=== PATIENT | female | born 1930 | race Caucasian/White ===

== ENCOUNTER 2017-06-28 09:45 | Outpatient (CLI) | payer MEDICARE, BC ==
[2017-06-28 10:45] LABS: #Basophils 0.1 thou/uL (0.0-0.2); #Eosinphils 0.3 thou/uL (0.0-0.7); #Lymphocytes 2.1 thou/uL (1.20-3.40); #Monocytes 0.5 thou/uL (0.11-0.59); #Neutrophils 6.5 thou/uL (1.40-6.50); %Basophils 0.7 % (0.0-1.0); %Eosinophils 3.4 % (0.0-10.0); %Monocytes 5.5 % (0.0-10.0); Hematocrit 46.9 % (36.0-47.0); Mean Platelet Volume 7.2 fL (7.4-10.4); Red Blood Cell (RBC) Count 5.11 mill/uL (4.20-5.40); White Blood Cell (WBC) Count 9.5 thou/uL (4.8-10.8)
[2017-06-28 10:46] LABS: Bilirubin Negative (Negative); Blood, Urine Negative (Negative); Glucose, Urine (Dipstick) Negative (Negative); Ketone, Urine Negative (Negative); Nitrite Negative (Negative); Protein, Urine (Dipstick) Negative (Neg-Trace); Urobilinogen 0.2 mg/dL (0.2-1.0)
[2017-06-28 10:49] LABS: Bacteria/HPF None Seen HPF (None Seen); Hyaline Casts/LPF 0-3 HYALINE CAST LPF (0-3 Hyaline); RBC/HPF 0-3 HPF (0-3); Squamous Epithelial 0-3 HPF (0-3); WBC/HPF 0-3 HPF (0-3)
[2017-06-28 11:10] LABS: Anion Gap 12 mmol/L (10-20); BUN (Urea Nitrogen) 13 mg/dL (9.8-20.1); Calc. Creatinine Clearance 0 mL/min (70-130); Calcium 9.5 mg/dL (7.8-10.44); Carbon Dioxide 27 mmol/L (23-31); Chloride 105 mmol/L (98-107); Estimated GFR-MDRD 70
--- NOTE | 2017-06-28 13:27 | EKG ---
Test Reason : Blood Pressure : / mmHG Vent. Rate : 064 BPM Atrial Rate : 064 BPM P-R Int : 114 ms QRS Dur : 080 ms QT Int : 426 ms P-R-T Axes : 032 070 057 degrees QTc Int : 439 ms Normal sinus rhythm Anterior infarct , age undetermined Abnormal ECG No previous ECGs available Confirmed by DR. Snehal FERREIRA ([id number]) on 06/28/2017 1:26:52 PM Referred By: ABHISHEK Confirmed By:DR. Snehal FERREIRA
== END 2017-06-28 09:46 | disposition home or self-care (01) ==
LOC: LABBT 09:45
PROVIDERS: ATTEND Orthopaedic Surgery Hand Surgery
DX: Z01.818 Encounter for other preprocedural examination (principal); G56.01 Carpal tunnel syndrome, right upper limb
CPT/HCPCS: 80048; 81001; 85025; 93005; 93010

== ENCOUNTER 2017-06-30 07:30 | Day surgery (SDC) | payer MEDICARE, BC ==
[2017-06-28 10:03] VITALS: BMI 21.7
[2017-06-30] MEDS ORDERED: Albuterol Sulfate 2.5 mg/3 ml Neb ONE (09:09)
[2017-06-30] MEDS ORDERED: Albuterol Sulfate 2.5 mg/3 ml Neb NEB SCH (09:15)
[2017-06-30] MEDS ORDERED: Fentanyl 100 MCG/2 ML VIAL ONE (09:38)
[2017-06-30] MEDS ORDERED: CEFAZOLIN/Water 2 GM/20 ML SYRINGE ONE (09:44)
[2017-06-30] MEDS ORDERED: ePHEDrine/0.9% NaCl/PF SYRINGE 50 mg/10 ml ONE (10:00)
[2017-06-30] MEDS ORDERED: PHENYLEPHRINE-NS 100 MCG/ML 10 ML SYRINGE ONE (10:00)
[2017-06-30] MEDS ORDERED: Glycopyrrolate 0.2 MG/ML 5 ML SYRINGE ONE (10:00)
[2017-06-30] MEDS ORDERED: Lidocaine 1% PF 5 ML VIAL ONE (10:00)
[2017-06-30] MEDS ORDERED: Propofol 200 MG/20 ML VIAL ONE ×2 (10:00)
[2017-06-30] MEDS ORDERED: Betamet Acet/Betamet Na Ph 30 MG/5 ML VIAL ONE (10:25)
[2017-06-30] MEDS ORDERED: Ketorolac Tromethamine 30 MG/ML VIAL ONE (10:44)
--- NOTE | 2017-06-30 22:02 | OP ---
DATE OF PROCEDURE: 06/30/2017 PREOPERATIVE DIAGNOSIS: Right carpal tunnel syndrome. POSTOPERATIVE DIAGNOSIS: Right carpal tunnel syndrome. t FINDINGS: 1. Tight transverse carpal ligament in the central proximal one-third with some early flattening, b ut no true hourglass formation. 2. No marked tenosynovitis seen. 3. Type 1 takeoff motor branch. PROCEDURE PERFORMED: 1. Carpal tunnel release, right median nerve neuroplasty of right wrist. 2. Application, intraoperative steroids. COMPLICATIONS: None. TOURNIQUET TIME: 14 minutes at 250 mmHg pressure. ANESTHESIA: [place] Anesthesia, general LMA technique augmented by 8 mL 0.5% Marcaine block incisi on. She has failed conservative treatment and has had the problem documented in the evaluation as w ell as elective diagnostically. DESCRIPTION OF PROCEDURE: After successful anesthesia listed above, the limb was prepped and draped . The patient had timeout done appropriately. The limb was exsanguinated, tourniquet inflated to 2 50 mmHg pressure. We then gave the 8 mL Marcaine block along the incision outlined beginning in charmaine e with the ring finger, central area from medial, lateral, and as far distal as 4 proximal and 6 mm distal to volar wrist flexion crease. We then carried this incision to skin and subcutaneous tissue, staying just slightly ulnar to the li ne of the palmaris longus until we reached the transverse carpal ligament. Blunt dissection exposed , a Weitlaner retractor was placed and then we began to the transcarpal ligament from the mid portion distally visualizing and avoiding the distal neurovascular bundle that included the division of the nerves. Here we saw the motor branch and it was intact without separate constriction. We then under direct visualization, released the transcarpal ligament from the mid portion proximall y. Then, this was 100% released all the way to the volar flexion, the volar wrist fascia as well. The tendons were inspected, there was no excessive tenosynovitis, we then visualized the nerve and f ound the flattening as described above. Tourniquet released, hemostasis obtained. Two mL of Celestone drip along the nerve and then wound w as closed with interrupted 4-0 nylon in a mattress pattern. Bulky dressing was applied. The patien t left operating room without anesthetic or operative complication.
== END 2017-06-30 12:18 | disposition home or self-care (01) ==
LOC: SDC 07:30
PROVIDERS: ATTEND Anesthesiology
PROC: 01N50ZZ Release Median Nerve, Open Approach (ICD-10-PCS; principal; 2017-06-30)
DX: G56.01 Carpal tunnel syndrome, right upper limb (principal); E78.5 Hyperlipidemia, unspecified; I11.0 Hypertensive heart disease with heart failure; I50.9 Heart failure, unspecified; E03.9 Hypothyroidism, unspecified; J44.9 Chronic obstructive pulmonary disease, unspecified; Z87.891 Personal history of nicotine dependence
CPT/HCPCS: 96374; J0131; J0702; J1885; J2001; J2704; J3010; J7611

== ENCOUNTER 2018-09-19 21:00 | Inpatient (IN) | payer MEDICARE, BC ==
[2018-09-19 21:49] LABS: #Basophils 0.1 thou/uL (0.0-0.2); #Eosinphils 0.3 thou/uL (0.0-0.7); #Lymphocytes 1.8 thou/uL (1.20-3.40); #Monocytes 0.6 thou/uL (0.11-0.59); #Neutrophils 7.4 thou/uL (1.40-6.50); %Basophils 0.7 % (0.0-1.0); %Eosinophils 3.2 % (0.0-10.0); %Lymphocytes 17.3 % (21.0-51.0); %Monocytes 6.1 % (0.0-10.0); %Neutrophils 72.7 % (42.0-75.0); Hemoglobin 13.7 g/dL (12.0-16.0); Mean Corpuscular HGB CONC 33.2 g/dL (32.0-36.0); Mean Corpuscular Hemoglobin 28.6 pg (27.0-31.0); Mean Corpuscular Volume 86.2 fL (78.0-98.0); Mean Platelet Volume 7.4 fL (7.4-10.4); Platelet Count 272 thou/uL (130-400); RBC Distribution Width 12.3 % (11.5-14.5); Red Blood Cell (RBC) Count 4.78 mill/uL (4.20-5.40); White Blood Cell (WBC) Count 10.2 thou/uL (4.8-10.8)
--- NOTE | 2018-09-19 21:59 | RAD ---
RADIOGRAPH CHEST 1 VIEW: Date: 09/19/18 Time: 9:26 p.m. HISTORY: 88-year-old female with dyspnea and hypoxemia. COMPARISON: 08/07/18 FINDINGS: Again noted is the hyperinflation consistent with COPD. The cardiomediastinal silhouette is normal. T here are diffusely prominent interstitial markings. These appear more prominent now than on the prior study, but that could be due to technical differences. No consolidation or pneumothorax. Lateral cos tophrenic angles are not effaced. IMPRESSION: 1. Emphysema. 2. Prominent interstitial markings, chronic versus acute. Favor chronic. MAL [] POS: YADIRA
[2018-09-19] MEDS ORDERED: Magnesium 2 GM/50 ML BAG (IN WATER) ONE (22:48)
[2018-09-19] MEDS ORDERED: methylPREDNISolone Sod Succ/PF 125 MG/2 ML VIAL ONE (22:48)
[2018-09-20 02:52] VITALS: BMI 21.4
[2018-09-20] MEDS ORDERED: Acetaminophen 325 MG TAB PO PRN (08:48)
[2018-09-20] MEDS: Atenolol 25 MG TAB PO SCH (10:04)
[2018-09-20] MEDS: Amlodipine 10 MG TAB PO SCH (10:04)
[2018-09-20] MEDS: Enoxaparin Sodium 40 MG/0.4 ML SYRINGE SC SCH (10:04)
[2018-09-20] MEDS: Lisinopril 10 MG TAB PO SCH (10:05)
[2018-09-20] MEDS: Famotidine 20 MG TAB PO SCH ×2 (10:05→20:24)
[2018-09-20] MEDS: Aspirin 81 mg Enteric Coated Tablet PO SCH (10:05)
--- NOTE | 2018-09-20 11:06 | CT ---
NONCONTRAST ENHANCED CT CHEST: HISTORY: Shortness of breath. Lump removed from breast which was benign. FINDINGS: Noncontrast-enhanced CT of the chest demonstrates some mild increased interstitial markings seen in t he lung bases compatible with interstitial fibrotic changes. Minimal areas of patchy density are also seen in the lingula and right middle lobe. Marked atherosclerotic calcifications are seen in the abdominal aorta and coronary arteries. No significant evidence of mediastinal or axillary lymphadenopathy is seen. Surgical clips are seen in the gallbladder fossa. Calcifications are seen in the hepatic parenchyma. IMPRESSION: 1. Some lung parenchymal interstitial fibrotic change is noted. No significant evidence of pneumoni a seen. No significant evidence of lymphadenopathy seen. 2. Extensive coronary and aortic calcifications. POS: H
--- NOTE | 2018-09-20 11:37 | CON ---
DATE OF CONSULTATION: HISTORY OF PRESENT ILLNESS: This is an 88-year-old female with known history of COPD, smoked two packs a day for most of her life, 52, quit smoking about two years ago. She presented to the hospital with increasing shortness of breath and cough, unresponsive to usual medication, which includes DuoNeb, budesonide, albuterol inhaler. She has a previous history of pneumonia in 2016. At most, she can barely walk 20 feet without getting markedly dyspneic. PAST MEDICAL HISTORY: Otherwise pertinent for COPD, coronary artery disease, and hypertension. PREVIOUS SURGERIES: Have included cholecystectomy, a single stent in 2000. HOME MEDICATIONS: Include, 1. Synthroid 100. 2. Atenolol 25. 3. Aspirin once. 4. Caduet one. 5. Lisinopril 10. ALLERGIES: NONE. SOCIAL HISTORY: Unremarkable. Alcohol, none. Tobacco, none FAMILY HISTORY: Unremarkable. REVIEW OF SYSTEMS: Otherwise 10 point negative. PHYSICAL EXAMINATION: VITAL SIGNS: Saturations are 97% on 2 L, respiratory rate 16, temperature 97, and blood pressure 143/73. CHEST: Decreased breath sounds. Minimal rhonchi. Minimal wheezing. CARDIAC: Normal S1 and S2. No gallop. ABDOMEN: No masses. LABORATORY DATA AND DIAGNOSTIC STUDIES: White count 10,000. Chest x-ray shows no acute infiltrates, hyperinflation. CAT scan, chest shows no PE, bibasilar nonspecific scarring. IMPRESSION: 1. Chronic obstructive pulmonary disease exacerbation, bronchitis, possibly superimposed pneumonia. 2. Coronary artery disease. PLAN: Continue neb treatments, steroids have added, Dulera prior to discharge, consider whole PFT. Consultation note, 70 minutes, 50% direct patient care. Job ID: [id number]
--- NOTE | 2018-09-20 16:08 | HP ---
CHIEF COMPLAINT: Dyspnea on exertion. HISTORY OF PRESENT ILLNESS: This patient is 88-year-old female, who has a long history of smoking. The patient reported that she was actually admitted in 2016 at [facility] for pneumonia. She reports that since her discharge, she was sent home on oxygen therapy. However, in 2017, she stated she felt fine and returned the oxygen and has not used it routinely since. She follows with Dr. Jordan and reports that she has been having intermittent shortness of breath on exertion for a good while. Dr. Jordan referred her to Dr. Zazueta to ensure this was not heart related situation. She reports she had a negative stress test and echocardiogram. He has been treating her with Combivent and budesonide, but her symptoms have persisted and so he has referred her to Pulmonology, but she was not able to get an appointment before October. She presented to the emergency department with increasing dyspnea on exertion, progressive over the last couple of weeks. She does report that she has a cough, but the cough is nonproductive. She denies any chest pains, palpitations, or fevers or chills. REVIEW OF SYSTEMS: All other systems reviewed, all pertinent positives and negatives noted in the history of present illness. PAST MEDICAL HISTORY: Notable for hypertension, coronary artery disease, and hyperlipidemia. She states she has never been diagnosed with chronic obstructive pulmonary disease. PAST SURGICAL HISTORY: Benign right breast mass removal and cholecystectomy. FAMILY HISTORY: Father of heart disease. Mother of heart disease, also had Alzheimer disease. SOCIAL HISTORY: The patient smoked half pack to a pack a day and quit in 2016 when she had pneumonia. She has no history of alcohol use. She is . Her daughter, Siobhan Crum would be her surrogate decision maker and she is a do not intubate, but is amenable to cardiac resuscitation. ALLERGIES: NONE. MEDICATIONS: 1. Levothyroxine 100 mcg daily. 2. Atenolol 25 daily. 3. Aspirin 81 mg daily. 4. Caduet 10/80 every evening. 5. Lisinopril 10 mg daily. PHYSICAL EXAMINATION: GENERAL APPEARANCE: Age-appropriate female. She is in some mild respiratory distress. She has been up around her room and did recover by the end of our exam as she had sat back down on the bed for a while. HEENT: PERRL. No open lesions. NECK: Supple and symmetric. HEART: Regular rate and rhythm without murmurs, gallops, or rubs. LUNGS: Have some modestly coarse of breath sounds throughout, but actually has fair air exchange. No wheezes or rales are noted. Her abdomen is soft, nontender, and nondistended. Positive bowel sounds. No masses. No organomegaly. EXTREMITIES: Warm and dry. No cyanosis, clubbing or edema. NEUROLOGICALLY: The patient is intact. She is alert and oriented x3. She moves all extremities spontaneously. SKIN: Exam reveals good turgor with no lesions. LABORATORY DATA: White count 10.2, hemoglobin 13.7, platelets 272. CK 79, troponin less than 0.01. BNP 132. Chest x-ray shows no infiltrate, but some diffuse interstitial markings which appear to be more likely chronic. IMPRESSION AND PLAN: 1. Likely chronic obstructive pulmonary disease exacerbation. The patient is admitted. She was started on steroids, nebulizer treatments, and supplemental oxygen. The patient had magnesium and Levaquin in the emergency room as well. We will continue with Levaquin. We will consult Pulmonary given this is the patient's first admission what looks like a chronic obstructive pulmonary disease and she was referred by her PCP to have follow up with Pulmonology prior to this admission. We will also obtain a CT scan of the chest given her increased interstitial markings. Certainly possible. The patient may have some significant bronchiectasis as well. 2. Hypertension. Continue with her usual amlodipine and atenolol. 3. Hyperlipidemia. Continue with atorvastatin. 4. Hypothyroidism. Continue with the Synthroid. Job ID: [id number]
[2018-09-20] MEDS: Mometasone/Formoterol 120 PUFF INHALER INH SCH (19:06)
[2018-09-20] MEDS: Atorvastatin Calcium 40 MG TAB PO SCH (20:24)
[2018-09-21] MEDS: Levothyroxine Sodium 100 MCG TAB PO SCH (05:13)
[2018-09-21] MEDS: Mometasone/Formoterol 120 PUFF INHALER INH SCH ×2 (06:23→18:55)
[2018-09-21 07:33] LABS: #Basophils 0.1 thou/uL (0.0-0.2); #Lymphocytes 1.1 thou/uL (1.20-3.40); #Monocytes 0.2 thou/uL (0.11-0.59); #Neutrophils 8.9 thou/uL (1.40-6.50); %Basophils 0.8 % (0.0-1.0); %Eosinophils 0.2 % (0.0-10.0); %Lymphocytes 10.3 % (21.0-51.0); %Monocytes 2.3 % (0.0-10.0); %Neutrophils 86.4 % (42.0-75.0); Hemoglobin 11.7 g/dL (12.0-16.0); Mean Corpuscular Hemoglobin 28.4 pg (27.0-31.0); Mean Corpuscular Volume 88.5 fL (78.0-98.0); Mean Platelet Volume 7.4 fL (7.4-10.4); Platelet Count 233 thou/uL (130-400); RBC Distribution Width 11.9 % (11.5-14.5); Red Blood Cell (RBC) Count 4.13 mill/uL (4.20-5.40); White Blood Cell (WBC) Count 10.3 thou/uL (4.8-10.8)
[2018-09-21 07:52] LABS: Anion Gap 12 mmol/L (10-20); BUN (Urea Nitrogen) 13 mg/dL (9.8-20.1); Calc. Creatinine Clearance 55 mL/min (70-130); Calcium 8.6 mg/dL (7.8-10.44); Carbon Dioxide 22 mmol/L (23-31); Chloride 104 mmol/L (98-107); Estimated GFR-MDRD 88; Glucose 155 mg/dL (83-110); Potassium 3.9 mmol/L (3.5-5.1); Sodium 134 mmol/L (136-145)
[2018-09-21] MEDS: Lisinopril 10 MG TAB PO SCH (09:11)
[2018-09-21] MEDS: Atenolol 25 MG TAB PO SCH (09:11)
[2018-09-21] MEDS: Amlodipine 10 MG TAB PO SCH (09:11)
[2018-09-21] MEDS: Enoxaparin Sodium 40 MG/0.4 ML SYRINGE SC SCH (09:12)
[2018-09-21] MEDS: Aspirin 81 mg Enteric Coated Tablet PO SCH (09:12)
[2018-09-21] MEDS: Famotidine 20 MG TAB PO SCH ×2 (09:12→20:06)
[2018-09-21] MEDS: predniSONE 20 MG TAB PO SCH ×2 (09:16→20:07)
--- NOTE | 2018-09-21 09:22 | PRG ---
DATE OF SERVICE: 09/21/2018 SUBJECTIVE: This morning, she is better. She is less short of breath, less coughing, less wheezing. OBJECTIVE: VITAL SIGNS: Saturations are 95 on 2L, respiratory rate 20, temperature 97, blood pressure 152/70. CHEST: Decreased breath sounds. No wheezing. CARDIAC: Normal S1, S2. No gallops. ABDOMEN: No masses. LABORATORY DATA: Lytes are normal. IMPRESSION: 1. Chronic obstructive pulmonary disease exacerbation. 2. Bronchitis. 3. Former smoker. PLAN: Switch her over to oral antibiotics and oral steroids. DISPOSITION: Hopefully home in the next 24-48 hours. Job ID: [id number]
--- NOTE | 2018-09-21 12:24 | PDOC.PN ---
- Subjective Encounter Start Date: 09/21/18 Encounter Start Time: 11:15 Breathing is better, but still feels a little SOB at times. Thinks she would benefit from home oxygen. - Objective Resuscitation Status - Order Detail: 09/20/18 08:48 Resuscitation Status Routine Resuscitation Status: PRTL: Cardiac only Discussed with: Patient Vital Signs & Weight: Vital Signs (12 hours) Temp Pulse Resp BP Pulse Ox 09/21/18 11:23 97.3 F L 81 20 125/70 97 09/21/18 10:11 87 16 93 L 09/21/18 07:41 97.3 F L 87 22 H 152/70 H 95 09/21/18 06:23 80 18 96 09/21/18 06:21 80 18 96 09/21/18 04:00 97.8 F 80 20 126/62 96 09/21/18 02:14 85 16 95 Weight Weight 121 lb 6.4 oz I&O: 09/20/18 09/21/18 09/22/18 06:59 06:59 06:59 Intake Total 480 1870 Balance 480 1870 Result Diagrams: 09/21/18 07:07 09/21/18 07:07 Phys Exam - Physical Examination Constitutional: NAD Respiratory: no wheezing, no rales, no rhonchi Diminished throughout. Cardiovascular: RRR, no significant murmur, no rub Gastrointestinal: soft, non-tender, no distention, positive bowel sounds Musculoskeletal: no edema Neurological: non-focal Psychiatric: normal affect, A&O x 3 Dx/Plan (1) COPD exacerbation Code(s): J44.1 - CHRONIC OBSTRUCTIVE PULMONARY DISEASE W (ACUTE) EXACERBATION Status: Acute (2) Hypertension Code(s): I10 - ESSENTIAL (PRIMARY) HYPERTENSION Status: Acute (3) Hyperlipidemia Code(s): E78.5 - HYPERLIPIDEMIA, UNSPECIFIED Status: Acute (4) Hypothyroidism Code(s): E03.9 - HYPOTHYROIDISM, UNSPECIFIED Status: Acute - Plan * Converted to oral meds. * Check room air sats to see if she will qualify for home oxygen. * Ambulate as tolerated. * continue nebs and steroids. * Discharge when stable with oral regimen.
--- NOTE | 2018-09-21 13:46 | PQF ---
REGLA ALMANZA DAVID R MD [id number] CLINICAL DOCUMENTATION IMPROVEMENT CLARIFICATION FORM: ICD-10 Updated PLEASE DO AN ADDENDUM TO THE PROGRESS NOTE WITH ANY DOCUMENTATION UPDATES OR ADDITIONS AND CARRY THROUGH TO DC SUMMARY. THANK YOU. DATE: 09/21/2018 ATTN: DR. ARMENDARIZ Please exercise your independent, professional judgment in responding to the clarification form. Clinical indicators are provided on the bottom of this form for your review Please check appropriate box(s): [ x] Acute Respiratory Failure: [ x ] with Hypoxia[ ] with Hypercapnia [ ] Acute On Chronic Respiratory Failure: [ ] with Hypoxia [ ] with Hypercapnia [ ] Chronic Respiratory Failure only: [ ] with Hypoxia [ ] with Hypercapnia [ ] Hypoxia [ ] Other diagnosis [ ] Unable to determine For continuity of documentation, please document condition throughout progress notes and discharge summary. Thank You. CLINICAL INDICATORS - SIGNS / SYMPTOMS / LABS 09/19-ER Triage Note: Shortness of breath. O2 sat 80 initially. Patient is breathing 32 times a minute and is on 3L NC. 09/20-H&P on exam includes: She is in some mild respiratory distress. RISK FACTORS 88-y/o Female Tobacco abuse / exposure; quit in 2016 TREATMENTS Oxygen Monitoring of oxygenation status Respiratory treatments Pulmonary Consult Possibly to include home oxygen (if qualifies) Thank You, Farhana (This form is maintained as a part of the permanent medical record) 2015 [employer]. All Rights Reserved Farhana Gerber RN, CDIS [email or web address] [phone] [facility]
[2018-09-21] MEDS: Atorvastatin Calcium 40 MG TAB PO SCH (20:06)
[2018-09-22] MEDS: Levothyroxine Sodium 100 MCG TAB PO SCH (05:44)
[2018-09-22] MEDS: Mometasone/Formoterol 120 PUFF INHALER INH SCH ×2 (07:37→19:02)
[2018-09-22] MEDS: Famotidine 20 MG TAB PO SCH ×2 (09:11→21:35)
[2018-09-22] MEDS: Lisinopril 10 MG TAB PO SCH (09:12)
[2018-09-22] MEDS: predniSONE 20 MG TAB PO SCH ×2 (09:12→21:35)
[2018-09-22] MEDS: Aspirin 81 mg Enteric Coated Tablet PO SCH (09:12)
[2018-09-22] MEDS: Atenolol 25 MG TAB PO SCH (09:13)
[2018-09-22] MEDS: Enoxaparin Sodium 40 MG/0.4 ML SYRINGE SC SCH (09:13)
[2018-09-22] MEDS: Amlodipine 10 MG TAB PO SCH (09:13)
--- NOTE | 2018-09-22 10:50 | EKG ---
Test Reason : Blood Pressure : / mmHG Vent. Rate : 096 BPM Atrial Rate : 096 BPM P-R Int : 136 ms QRS Dur : 080 ms QT Int : 356 ms P-R-T Axes : 069 080 070 degrees QTc Int : 449 ms Normal sinus rhythm Normal ECG Confirmed by VIOLA JULIO DO ([id number]), staff editor MARBELLA MONSALVE ([id number]) on 09/22/2018 10:50:26 AM Referred By: Confirmed By:VIOLA JULIO DO
--- NOTE | 2018-09-22 18:27 | PDOC.PN ---
- Subjective Encounter Start Date: 09/22/18 Encounter Start Time: 10:15 Doing better overall. Had SaO2 in mid 80's with ambulation. Doing well with the oxygen. Had an episode of confusion this morning. She recalls it well. She thinks her oxygen came off. Nurse indicated that they woke her and opened the curtains thinks she may have just been disoriented. - Objective Resuscitation Status - Order Detail: 09/20/18 08:48 Resuscitation Status Routine Resuscitation Status: PRTL: Cardiac only Discussed with: Patient Vital Signs & Weight: Vital Signs (12 hours) Temp Pulse Resp BP BP Pulse Ox 09/22/18 16:17 84 20 09/22/18 15:09 97.6 F 71 20 124/65 96 09/22/18 11:10 97.4 F L 69 22 H 148/80 H 97 09/22/18 10:48 88 20 09/22/18 09:13 74 150/70 H 09/22/18 09:12 150/70 H 09/22/18 08:10 95 09/22/18 07:48 98.3 F 74 20 150/70 H 96 09/22/18 07:37 75 20 97 09/22/18 07:16 97 09/22/18 07:12 75 20 97 Weight Weight 121 lb 6.4 oz I&O: 09/21/18 09/22/18 09/23/18 06:59 06:59 06:59 Intake Total 1870 1740 Balance 1870 1740 Result Diagrams: 09/21/18 07:07 09/21/18 07:07 Phys Exam - Physical Examination Constitutional: NAD Respiratory: no wheezing, no rales, no rhonchi Diminished Cardiovascular: RRR, no significant murmur, no rub Gastrointestinal: soft, non-tender, no distention, positive bowel sounds Musculoskeletal: no edema Dx/Plan (1) COPD exacerbation Code(s): J44.1 - CHRONIC OBSTRUCTIVE PULMONARY DISEASE W (ACUTE) EXACERBATION Status: Acute (2) Hypertension Code(s): I10 - ESSENTIAL (PRIMARY) HYPERTENSION Status: Acute (3) Hyperlipidemia Code(s): E78.5 - HYPERLIPIDEMIA, UNSPECIFIED Status: Acute (4) Hypothyroidism Code(s): E03.9 - HYPOTHYROIDISM, UNSPECIFIED Status: Acute - Plan * Improved overall. * Work on home oxygen. * Continue nebs, steroids, abx. * Ambulate.
--- NOTE | 2018-09-22 20:59 | PRG ---
DATE OF SERVICE: 09/22/2018 SUBJECTIVE: She says she is feeling better. She says last year she has had at least three episodes of shortness of breath that improved with steroids. She is hoping this will not happen again. She just quit smoking two and half to three years ago. She is afebrile, heart rate is 80, respiratory rate 18, oximetry is 95% on 1 L. OBJECTIVE: LUNGS: Clear. HEART: Regular rhythm. ABDOMEN: Soft. IMPRESSION: Chronic obstructive pulmonary disease exacerbation with a component of reactive airway. Adding an Singulair may help. She is already on budesonide twice a day via nebulizer and ipratropium and albuterol 3-4 times a day. I doubt the atenolol at 25 mg a day is contributing to her bronchospasm. We will continue to follow. Hopefully, she will be a candidate for discharge tomorrow. Job ID: [id number]
[2018-09-22] MEDS: Atorvastatin Calcium 40 MG TAB PO SCH (21:35)
[2018-09-23] MEDS: Levothyroxine Sodium 100 MCG TAB PO SCH (05:58)
[2018-09-23] MEDS: predniSONE 20 MG TAB PO SCH ×2 (09:25→20:24)
[2018-09-23] MEDS: Aspirin 81 mg Enteric Coated Tablet PO SCH (09:25)
[2018-09-23] MEDS: Amlodipine 10 MG TAB PO SCH (09:26)
[2018-09-23] MEDS: Atenolol 25 MG TAB PO SCH (09:27)
[2018-09-23] MEDS: Famotidine 20 MG TAB PO SCH ×2 (09:28→20:24)
[2018-09-23] MEDS: Lisinopril 10 MG TAB PO SCH (09:28)
[2018-09-23] MEDS: Enoxaparin Sodium 40 MG/0.4 ML SYRINGE SC SCH (09:28)
[2018-09-23] MEDS: Mometasone/Formoterol 120 PUFF INHALER INH SCH ×2 (12:07→18:42)
--- NOTE | 2018-09-23 15:48 | PDOC.PN ---
- Subjective Encounter Start Date: 09/23/18 Encounter Start Time: 11:00 Patient is feeling ok, but frustrated because she was cold all night. Had some issues with the thermostat. Wants to go home and wants to go by 2:00 or she will not have a ride. Says we can use any home oxygen company if [employer] is not responding. - Objective Resuscitation Status - Order Detail: 09/20/18 08:48 Resuscitation Status Routine Resuscitation Status: PRTL: Cardiac only Discussed with: Patient Vital Signs & Weight: Vital Signs (12 hours) Temp Pulse Resp BP BP Pulse Ox 09/23/18 15:25 76 20 09/23/18 12:07 88 24 H 09/23/18 11:37 88 24 H 09/23/18 11:03 97.6 F 77 22 H 161/79 H 97 09/23/18 09:28 146/70 H 09/23/18 09:27 86 146/70 H 09/23/18 09:26 86 146/70 H 09/23/18 08:20 95 09/23/18 07:40 97.7 F 86 20 119/55 L 100 09/23/18 07:33 94 L 09/23/18 07:31 94 20 94 L 09/23/18 04:00 97.7 F 81 20 152/71 H 93 L Weight Weight 121 lb 6.4 oz I&O: 09/22/18 09/23/18 09/24/18 06:59 06:59 06:59 Intake Total 1740 960 Balance 1740 960 Result Diagrams: 09/21/18 07:07 09/21/18 07:07 Phys Exam - Physical Examination Constitutional: NAD Comfortable in bed with oxygen. Respiratory: no wheezing, no rales, no rhonchi, clear to auscultation bilateral Cardiovascular: RRR, no significant murmur, no rub Gastrointestinal: soft, non-tender, no distention Musculoskeletal: no edema Psychiatric: normal affect, A&O x 3 Dx/Plan (1) Acute respiratory failure with hypoxia Code(s): J96.01 - ACUTE RESPIRATORY FAILURE WITH HYPOXIA Status: Acute (2) COPD exacerbation Code(s): J44.1 - CHRONIC OBSTRUCTIVE PULMONARY DISEASE W (ACUTE) EXACERBATION Status: Acute (3) Hypertension Code(s): I10 - ESSENTIAL (PRIMARY) HYPERTENSION Status: Acute (4) Hyperlipidemia Code(s): E78.5 - HYPERLIPIDEMIA, UNSPECIFIED Status: Acute (5) Hypothyroidism Code(s): E03.9 - HYPOTHYROIDISM, UNSPECIFIED Status: Acute - Plan * Repeat room air sats today. * CM working on obtaining home oxygen. * Continue nebs, steroids, montelukast. * Can be discharged when the home oxygen is set up.
--- NOTE | 2018-09-23 19:07 | PRG ---
DATE OF SERVICE: 09/23/2018 SUBJECTIVE: Ms. Boles is upset and wanted to be discharged today. She tells me her room air O2 saturation was 94%. She said she was ambulating, she desaturated. This is not unexpected. OBJECTIVE: VITAL SIGNS: She is afebrile, heart rate is 86, respiratory rate is 20, oximetry is 95, now 1L/minute. LUNGS: Clear. HEART: Regular rhythm. ABDOMEN: Soft. IMPRESSION: Chronic obstructive pulmonary disease exacerbation. The room air resting O2 saturation is greater than or equal to 90. She does not have to be discharged home with oxygen. There is no clinical proven benefit for length of life with oxygen therapy to treat desaturation with exercise. This is expected with patients have chronic obstructive pulmonary disease. She is not having any chest pain when she is ambulating or anything to suggest that she has unstable angina. She does not want to go home with oxygen. If her room air saturations greater than 90 at rest tomorrow, I would discharge her home for nebulizer treatments and close outpatient followup with the 10- to 14-day steroid taper. Job ID: [id number]
[2018-09-23] MEDS: Atorvastatin Calcium 40 MG TAB PO SCH (20:24)
[2018-09-23] MEDS ORDERED: Montelukast Sodium 10 mg Tablet PO SCH (21:00)
[2018-09-24] MEDS: Levothyroxine Sodium 100 MCG TAB PO SCH (05:34)
[2018-09-24] MEDS: Mometasone/Formoterol 120 PUFF INHALER INH SCH (06:37)
[2018-09-24] MEDS: Famotidine 20 MG TAB PO SCH (08:06)
[2018-09-24] MEDS: Atenolol 25 MG TAB PO SCH (08:07)
[2018-09-24] MEDS: Aspirin 81 mg Enteric Coated Tablet PO SCH (08:09)
[2018-09-24] MEDS: Lisinopril 10 MG TAB PO SCH (08:09)
[2018-09-24] MEDS: Amlodipine 10 MG TAB PO SCH (08:10)
[2018-09-24] MEDS: Enoxaparin Sodium 40 MG/0.4 ML SYRINGE SC SCH (08:11)
[2018-09-24] MEDS: predniSONE 20 MG TAB PO SCH (08:12)
[2018-09-24 12:20] VITALS: BP 150/79; TEMP 97.6
== END 2018-09-24 12:32 | disposition home or self-care (01) | DRG 189 ==
LOC: ERS 21:00 → SURG A 23:24
PROVIDERS: ADMIT Hospitalist; ATTEND Hospitalist
DX: J96.01 Acute respiratory failure with hypoxia (principal); J44.1 Chronic obstructive pulmonary disease with (acute) exacerbation; I10 Essential (primary) hypertension; I25.10 Atherosclerotic heart disease of native coronary artery without angina pectoris; E78.5 Hyperlipidemia, unspecified; E03.9 Hypothyroidism, unspecified; Z87.891 Personal history of nicotine dependence; Z79.82 Long term (current) use of aspirin
CPT/HCPCS: 36415; 71045; 71250; 80048; 82550; 83880; 84484; 85025; 85379; 87040; 87804; 93005; 94640; 94760; 96365; 96366; 96367; 96374; J1650; J1956; J2920; J2930; J7506; J7620